=== PATIENT | female | born 2000 | race Caucasian/White ===

== ENCOUNTER 2021-04-14 15:19 | Emergency (ER) | payer BC, MEDICAID ==
[~2021-04-14] VITALS: Ht 157.5 cm; Wt 44.0 kg
[2021-04-14 15:27] VITALS: BP 110/75
--- NOTE | 2021-04-14 15:52 | NUR ---
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
[2021-04-14] MEDS ORDERED: LIDOCAINE-MPF 1%, 5ML INFIL ONE (16:00)
[2021-04-14] MEDS ORDERED: NEOSPORIN OINT. PKT 1 PACKET ONE (16:12)
--- NOTE | 2021-04-14 16:22 | NUR ---
APPROX 80ML OF PUS DRAINED FROM RIGHT BROW ABSCESS, THEN IRRIGATES, BETADINED, NESPORIN AND LOOSE GAUZE DRESSING
== END 2021-04-14 16:52 | disposition home or self-care (01) ==
LOC: ED 16:35
DX: H44.001 Unspecified purulent endophthalmitis, right eye (principal)
CPT/HCPCS: 99283